=== PATIENT | male | born 1955 | race Caucasian/White ===

== ENCOUNTER 2017-02-10 14:20 | Emergency (ER) | payer OTHER ==
[~2017-02-10] VITALS: Ht 193 cm; Wt 110.0 kg
[2017-02-10 14:24] VITALS: BP 193/123; PULSE 84; RESP 30; TEMP 97.7; O2SAT 95
[2017-02-10] MEDS ORDERED: SODIUM CHLOR 0.9% 1000 ML INJ 1,000 ML IV SCH (15:41)
--- NOTE | 2017-02-10 15:41 | PD ---
HPI Chief Complaint: Flank/Kidney Pain Time Seen by Provider: 15:34 Travel History International Travel<30 days: No Contact w/Intl Traveler<30days: No Traveled to known affect area: No History of Present Illness HPI 61-year-old male presents to emergency department complaining of right-sided flank pain that started this morning. Reports nausea and vomiting. Reports hot and cold spells. Unknown fever. Denies dysuria, hematuria. Had a normal bowel movement this morning. Denies history of kidney stones. Has not taken any medication or treatment treatments alleviate his symptoms. Pain is constant. No known relieving or aggravating factors. Described as a stabbing sensation. Pain is 10/10. Denies past medical history. Denies history of abdominal surgeries. No known allergies. Has no other medical complaints. Does not have an established primary care provider. No other modifying factors or associated signs and symptoms. PFSH Past Medical History Medical History: Denies Significant Hx Tetanus Vaccination: < 5 Years Past Surgical History Surgical History: No Previous Surgery Social History Alcohol Use: No Tobacco Use: No Substance Use: No Allergies-Medications (Allergen,Severity, Reaction): Coded Allergies: No Known Allergies (Verified Allergy, Unknown, 02/10/17) Reported Meds & Prescriptions Reported Meds & Active Scripts Active Flomax (Tamsulosin HCl) 0.4 Mg Cap 0.4 Mg PO HS Percocet (Oxycodone-Acetaminophen) 5-325 mg Tab 1 Tab PO Q6H PRN Bactrim DS (Sulfamethoxazole-Trimethoprim) 800-160 Mg Tab 1 Tab PO BID Review of Systems Except as stated in HPI: all other systems reviewed are Neg Physical Exam Narrative GENERAL: Well-nourished, well-developed male patient, in no acute distress SKIN: Warm and dry. No rash. HEAD: Atraumatic. Normocephalic. EYES: Pupils equal and round. No scleral icterus. No injection or drainage. ENT: Mucosa pink and moist. NECK: Trachea midline. CARDIOVASCULAR: Regular rate and rhythm. No murmur appreciated. RESPIRATORY: No accessory muscle use. Clear to auscultation. Breath sounds equal bilaterally. GASTROINTESTINAL: Abdomen soft, tenderness of right flank area, nondistended. Hepatic and splenic margins not palpable. Bowel sounds are active 4 quadrants. MUSCULOSKELETAL: No obvious deformities. No clubbing. No cyanosis. No edema. BACK: Right CVA tenderness. NEUROLOGICAL: Awake and alert. Oriented 3. No obvious cranial nerve deficits. Motor grossly within normal limits. Normal speech. Moves all extremities. 5/5 strength to all extremities. PSYCHIATRIC: Appropriate mood and affect; insight and judgment normal. Data Data Last Documented VS Vital Signs Date Time Temp Pulse Resp B/P (MAP) Pulse Ox O2 Delivery O2 Flow Rate FiO2 02/10/17 20:52 02/10/17 17:47 69 20 99 02/10/17 14:24 97.7 Orders Orders Complete Blood Count With Diff (02/10/17 14:59) Basic Metabolic Panel (Bmp) (02/10/17 14:59) Lipase (02/10/17 15:41) Urinalysis - C+S If Indicated (02/10/17 15:41) Ct Abd/Pel W/O Iv Contrast (02/10/17 15:41) Morphine Inj (Morphine Inj) (02/10/17 15:45) Ondansetron Inj (Zofran Inj) (02/10/17 15:45) Sodium Chlor 0.9% 1000 Ml Inj (Ns 1000 M (02/10/17 15:41) Sodium Chloride 0.9% Flush (Ns Flush) (02/10/17 15:45) Urine Culture (02/10/17 15:40) Blood Culture (02/10/17 19:03) Lactic Acid Sepsis Protocol (02/10/17 19:03) Ceftriaxone Inj (Rocephin Inj) (02/10/17 19:15) Ed Discharge Order (02/10/17 20:33) Labs Laboratory Tests Test 02/10/17 15:15 02/10/17 15:40 02/10/17 19:20 White Blood Count 14.9 TH/MM3 Red Blood Count 4.91 MIL/MM3 Hemoglobin 15.9 GM/DL Hematocrit 45.6 % Mean Corpuscular Volume 92.9 FL Mean Corpuscular Hemoglobin 32.4 PG Mean Corpuscular Hemoglobin Concent 34.9 % Red Cell Distribution Width 11.7 % Platelet Count 163 TH/MM3 Mean Platelet Volume 9.4 FL Neutrophils (%) (Auto) 83.3 % Lymphocytes (%) (Auto) 9.4 % Monocytes (%) (Auto) 6.9 % Eosinophils (%) (Auto) 0.0 % Basophils (%) (Auto) 0.4 % Neutrophils # (Auto) 12.4 TH/MM3 Lymphocytes # (Auto) 1.4 TH/MM3 Monocytes # (Auto) 1.0 TH/MM3 Eosinophils # (Auto) 0.0 TH/MM3 Basophils # (Auto) 0.1 TH/MM3 CBC Comment DIFF FINAL Differential Comment Blood Urea Nitrogen 23 MG/DL Creatinine 1.09 MG/DL Random Glucose 173 MG/DL Calcium Level 9.6 MG/DL Sodium Level 139 MEQ/L Potassium Level 3.7 MEQ/L Chloride Level 106 MEQ/L Carbon Dioxide Level 22.3 MEQ/L Anion Gap 11 MEQ/L Estimat Glomerular Filtration Rate 69 ML/MIN Urine Color YELLOW Urine Turbidity HAZY Urine pH 8.5 Urine Specific [place] 1.021 Urine Protein 30 mg/dL Urine Glucose (UA) 150 mg/dL Urine Ketones 150 mg/dL Urine Occult Blood MOD Urine Nitrite NEG Urine Bilirubin NEG Urine Urobilinogen LESS THAN 2.0 MG/DL Urine Leukocyte Esterase NEG Urine RBC /hpf Urine WBC 13 /hpf Urine Mucus FEW /lpf Microscopic Urinalysis Comment CULTURE INDICATED Lipase 128 U/L Lactic Acid Level 1.2 mmol/L [facility] Medical Decision Making Medical Screen Exam Complete: Yes Emergency Medical Condition: Yes Medical Record Reviewed: Yes Differential Diagnosis Cholelithiasis, urolithiasis, appendicitis, hydronephrosis Narrative Course 61-year-old male with right flank pain. IV site obtained. CBC, CMP, lipase, urinalysis, CT abdomen/pelvis ordered. Morphine, Zofran, normal saline bolus ordered. 1607: Leukocytosis 14.9. 1900: Urinalysis signs of infection. CT abdomen/pelvis concludes: Abdomen/Pelvis CT 02/10/17 1541 Signed Impressions: Service Date/Time: Friday, February 10, 2017 16:31 - CONCLUSION: Obstructive uropathy on the right caused by 8mm mid right ureteral stone. Cheng Miles MD 1899: Report given to Dr. Alonso at change of shift. See Dr. Alonso's note for final patient disposition. Scripts Tamsulosin (Flomax) 0.4 Mg Cap 0.4 MG PO HS for Manage Prostate Problems, #7 CAP 0 Refills Prov: Marisela Alonso DO 02/10/17 Oxycodone-Acetaminophen (Percocet) 5-325 mg Tab 1 TAB PO Q6H Y for PAIN, #10 TAB 0 Refills Prov: Marisela Alonso DO 02/10/17 Sulfamethoxazole-Trimethoprim (Bactrim DS) 800-160 Mg Tab 1 TAB PO BID for Infection, #14 TAB 0 Refills Prov: Marisela Alonso DO 02/10/17 Ania Gibbs Feb 10, 2017 15:41
[2017-02-10 15:44] LABS: AUTOMATED NEUTROPHIL # 12.4 TH/MM3 (1.8-7.7); BASOPHIL # 0.1 TH/MM3 (0-0.2); BASOPHIL % 0.4 % (0.0-2.0); HEMATOCRIT 45.6 % (39.0-51.0); HEMOGLOBIN 15.9 GM/DL (13.0-17.0); LYMPH % 9.4 % (9.0-44.0); LYMPHOCYTE # 1.4 TH/MM3 (1.0-4.8); MEAN CELL VOLUME 92.9 FL (80.0-100.0); MEAN CORPUSCULAR HEMOGLOBIN 32.4 PG (27.0-34.0); MEAN CORPUSCULAR HGB CONC 34.9 % (32.0-36.0); MEAN PLATELET VOLUME 9.4 FL (7.0-11.0); MONO % 6.9 % (0.0-8.0); NEUT % 83.3 % (16.0-70.0); PLATELET COUNT 163 TH/MM3 (150-450); RED BLOOD COUNT 4.91 MIL/MM3 (4.50-5.90); RED CELL DISTRIBUTION WIDTH 11.7 % (11.6-17.2); WHITE BLOOD COUNT 14.9 TH/MM3 (4.0-11.0)
[2017-02-10] MEDS ORDERED: SODIUM CHLORIDE 0.9% FLUSH 10 ML FLUSH IV FLUSH PRN (15:45)
[2017-02-10] MEDS ORDERED: ONDANSETRON HCL 4 MG/2 ML VIAL IVP ONE (15:45)
[2017-02-10] MEDS ORDERED: MORPHINE SULFATE 4 MG/ML INJ IV PUSH ONE (15:45)
[2017-02-10 16:12] LABS: BICARBONATE 22.3 MEQ/L (21.0-32.0); CALCIUM 9.6 MG/DL (8.5-10.1); CREATININE 1.09 MG/DL (0.60-1.30)
[2017-02-10 16:22] LABS: BILIRUBIN, URINE NEG (NEG); BLOOD, URINE MOD (NEG); GLUCOSE,URINE 150 mg/dL (NEG); KETONE, URINE 150 mg/dL (NEG); MUCUS URINE FEW /lpf (OCC); NITRITE,URINE NEG (NEG); PH, URINE 8.5 (5.0-8.5); URINE COLOR YELLOW (YELLW/STRAW); URINE LEUKOCYTE ESTERASE NEG (NEG)
--- NOTE | 2017-02-10 17:06 | RADRPT ---
EXAM DATE/TIME: 02/10/2017 16:31 [place] COMPARISON: No previous studies available for comparison. INDICATIONS : Patient complains of right flank pain. ORAL CONTRAST: No oral contrast ingested. RADIATION DOSE: 8.57 CTDIvol (mGy) MEDICAL HISTORY : None SURGICAL HISTORY : None. ENCOUNTER: Initial ACUITY: 1 day PAIN SCALE: 10/10 LOCATION: Right flank TECHNIQUE: Renal colic protocol. Volumetric scanning of the abdomen and pelvis was performed. Using automated exposure control and adjustment of the mA and/or kV according to patient size, radiation dose was kep t as low as reasonably achievable to obtain optimal diagnostic quality images. DICOM format image da ta is available electronically for review and comparison. FINDINGS: Right side: Mild dilation of the collecting system and proximal ureter. There is an obstructing stone in the mid to proximal right ureter at the L4 level measuring 8 mm. There is some induration of the periureter ic fat proximally. There is also perinephric stranding in the right perirenal space. No additional calcified stones seen in the right kidney. Left side: No evidence of hydronephrosis or calcified stones. The left ureter is normal in dimension. Ill-defi anna low density area in the cortex of the mid to lower pole measuring 1.8 cm further characterized on noncontrast study, possibly representing a cyst. Bladder: Smooth margins. No calcifications within the lumen. Other: Small bilateral fat containing inguinal hernias. No dilated loops of small or large bowel. Normal a ppearance to the appendix which is located lateral to the right colon. The visualized lower lungs ar e clear. Osseous structures are grossly intact. CONCLUSION: Obstructive uropathy on the right caused by 8mm mid right ureteral stone. Cheng Miles MD on February 10, 2017 at 17:01 Board Certified Radiologist. This report was verified electronically.
[2017-02-10 17:47] VITALS: BP 162/68; PULSE 69; RESP 20; O2SAT 99
[2017-02-10] MEDS ORDERED: cefTRIAXone INJ 1,000 MG in SODIUM CHLORIDE 0.9% INJ 100 ML IV ONE (19:15)
[2017-02-10] MEDS ORDERED: TAMS5CAP PO (20:32)
[2017-02-10] MEDS ORDERED: BACT800T5 PO (20:32)
[2017-02-10] MEDS ORDERED: PERC5TAB12 PO (20:32)
--- NOTE | 2017-02-10 20:33 | PD ---
Physical Exam Narrative I, Dr. Alonso, have reviewed the advance practice practitioner's documentation and am in agreement, met with the patient face to face, made the diagnosis, and the medical decision making was done by me. *My assessment and Findings: Nephrolithiasis vs. pyelonephritis 61yo M with right flank pain, nausea and vomiting today. Labs reviewed, leukocytosis at 14.9. Creatinine normal at 1.09. Lactic acid normal at 1.2. Lipase normal at 128. UA showed moderate blood. WBC 13. Culture indicated. Pt given ceftriaxone 1gm IV, morphine and zofran. CT a/p showed obstructive uropathy on right caused by 8mm right ureteral stone. I wanted to admit pt but he said that he has no pain now and nausea has resolved. He wants to try outpatient treatment first and understands to return to the ED immediately if any symptoms worsen. I informed him of the infection as well as the obstruction but he does not want to be admitted. Creatinine currently normal at 1.09. Will have pt follow up with urology tomorrow since pt does not want to stay. Data Data Last Documented VS Vital Signs Date Time Temp Pulse Resp B/P (MAP) Pulse Ox O2 Delivery O2 Flow Rate FiO2 02/10/17 17:47 69 20 162/68 (99) 99 02/10/17 14:24 97.7 Orders Orders Complete Blood Count With Diff (02/10/17 14:59) Basic Metabolic Panel (Bmp) (02/10/17 14:59) Lipase (02/10/17 15:41) Urinalysis - C+S If Indicated (02/10/17 15:41) Ct Abd/Pel W/O Iv Contrast (02/10/17 15:41) Morphine Inj (Morphine Inj) (02/10/17 15:45) Ondansetron Inj (Zofran Inj) (02/10/17 15:45) Sodium Chlor 0.9% 1000 Ml Inj (Ns 1000 M (02/10/17 15:41) Sodium Chloride 0.9% Flush (Ns Flush) (02/10/17 15:45) Urine Culture (02/10/17 15:40) Blood Culture (02/10/17 19:03) Lactic Acid Sepsis Protocol (02/10/17 19:03) Ceftriaxone Inj (Rocephin Inj) (02/10/17 19:15) Labs Laboratory Tests Test 02/10/17 15:15 02/10/17 15:40 02/10/17 19:20 White Blood Count 14.9 TH/MM3 Red Blood Count 4.91 MIL/MM3 Hemoglobin 15.9 GM/DL Hematocrit 45.6 % Mean Corpuscular Volume 92.9 FL Mean Corpuscular Hemoglobin 32.4 PG Mean Corpuscular Hemoglobin Concent 34.9 % Red Cell Distribution Width 11.7 % Platelet Count 163 TH/MM3 Mean Platelet Volume 9.4 FL Neutrophils (%) (Auto) 83.3 % Lymphocytes (%) (Auto) 9.4 % Monocytes (%) (Auto) 6.9 % Eosinophils (%) (Auto) 0.0 % Basophils (%) (Auto) 0.4 % Neutrophils # (Auto) 12.4 TH/MM3 Lymphocytes # (Auto) 1.4 TH/MM3 Monocytes # (Auto) 1.0 TH/MM3 Eosinophils # (Auto) 0.0 TH/MM3 Basophils # (Auto) 0.1 TH/MM3 CBC Comment DIFF FINAL Differential Comment Blood Urea Nitrogen 23 MG/DL Creatinine 1.09 MG/DL Random Glucose 173 MG/DL Calcium Level 9.6 MG/DL Sodium Level 139 MEQ/L Potassium Level 3.7 MEQ/L Chloride Level 106 MEQ/L Carbon Dioxide Level 22.3 MEQ/L Anion Gap 11 MEQ/L Estimat Glomerular Filtration Rate 69 ML/MIN Urine Color YELLOW Urine Turbidity HAZY Urine pH 8.5 Urine Specific [place] 1.021 Urine Protein 30 mg/dL Urine Glucose (UA) 150 mg/dL Urine Ketones 150 mg/dL Urine Occult Blood MOD Urine Nitrite NEG Urine Bilirubin NEG Urine Urobilinogen LESS THAN 2.0 MG/DL Urine Leukocyte Esterase NEG Urine RBC /hpf Urine WBC 13 /hpf Urine Mucus FEW /lpf Microscopic Urinalysis Comment CULTURE INDICATED Lipase 128 U/L Lactic Acid Level 1.2 mmol/L MDM Supervised Visit with KAI: Yes Diagnosis Primary Impression: Obstructive uropathy Referrals: Dwayne Lyn MD Patient Instructions: General Instructions Departure Forms: Tests/Procedures Additional Instruction: Please follow up with Dr. Lyn tomorrow or return to the ED if you change your mind or symptoms worsen. Med/Other Pt SpecificInfo: Prescription(s) given Scripts Tamsulosin (Flomax) 0.4 Mg Cap 0.4 MG PO HS for Manage Prostate Problems, #7 CAP 0 Refills Prov: Marisela Alonso DO 02/10/17 Oxycodone-Acetaminophen (Percocet) 5-325 mg Tab 1 TAB PO Q6H Y for PAIN, #10 TAB 0 Refills Prov: Marisela Alonso DO 02/10/17 Sulfamethoxazole-Trimethoprim (Bactrim DS) 800-160 Mg Tab 1 TAB PO BID for Infection, #14 TAB 0 Refills Prov: Marisela Alonso DO 02/10/17 Disposition: 01 DISCHARGE HOME Condition: Stable Marisela Alonso DO Feb 10, 2017 20:33
== END 2017-02-10 21:05 | disposition home or self-care (01) ==
LOC: NEPD 14:20
DX: N13.9 Obstructive and reflux uropathy, unspecified (principal); R11.2 Nausea with vomiting, unspecified; N20.1 Calculus of ureter
CPT/HCPCS: 74176; 80048; 81001; 83605; 83690; 85025; 87040; 87086; 96361; 96374; 96375; 99285; J0696; J2270; J2405; J7030